=== PATIENT | female | born 1945 | race American Indian/Alaskan Native ===

== ENCOUNTER 2018-11-19 12:05 | Outpatient (CLI) | payer MEDICARE ==
--- NOTE | 2018-11-19 12:52 | XRay Report ---
LUMBOSACRAL SPINE, FIVE VIEWS: HISTORY: Low back pain. There is normal height and alignment of lumbar vertebral bodies. No compression deformity, subluxation or bone lesion. Mild degenerative disc disease and facet arthropathy are identified at all levels. The oblique images demonstrate no evidence for pars defect or high-grade neural foraminal narrowing. The sacrum and SI joints are unremarkable. Calcified uterine fibroids are noted in the right side of the pelvis. IMPRESSION: Mild multilevel lumbar spondylosis. Uterine fibroid disease.
== END 2018-11-19 12:06 | disposition home or self-care (01) ==
LOC: XRAY 12:05
PROVIDERS: ATTEND Orthopaedic Surgery
DX: M47.896 Other spondylosis, lumbar region (principal); D25.9 Leiomyoma of uterus, unspecified
CPT/HCPCS: 72110